=== PATIENT | male | born 1955 | race Caucasian/White ===

== ENCOUNTER → 2021-02-03 | Day surgery (SDC) | payer OTHER ==
[~2021-02-03] MED LIST: ACIPHEX20 MG PO; ALL DAY ALLERGY10 M2 PO; ASPIRIN EC81 MG PO; CELEXA20 M1 PO; COREG25 MG PO; COZAAR50 MG PO; JANUVIA50 MG PO; LIPITOR20 MG PO; LOVAZA1 GM PO; METFORMIN HCL500 MG PO; NORVASC5 MG PO; PROVIGIL200 MG PO; SYNTHROID75 MCG PO; TRADJENTA5 MG PO
[2021-02-03 08:17] LABS: HCT 43.9 % (42.0-52.0); MCH 30.6 pg (25.0-31.0); MCHC 34.2 g/dL (32.0-36.0); MCV 89.6 fL (78.0-100.0); MPV 9.8 fL (6.0-9.5); RBC 4.9 M/uL (4.70-6.00); RDW 13.8 % (11.5-14.0); WBC 8.5 K/uL (4.0-10.5)
[2021-02-03 08:37] LABS: ALBUMIN 3.9 g/dL (3.4-5.0); BILIRUBIN - TOTAL 0.8 mg/dL (0.2-1.0); BUN/CREAT RATIO (CALC) 13.8 RATIO; CREATININE 0.87 mg/dL (0.67-1.17); GLOBULIN (CALCULATION) 3.5 g/dL; POTASSIUM 4.1 mmol/L (3.5-5.1); TOTAL PROTEIN 7.4 g/dL (6.4-8.2)
== END | disposition home or self-care (01) ==
LOC: FAS 07:12
PROVIDERS: Surgery
DX: K29.50 Unspecified chronic gastritis without bleeding (principal); K21.9 Gastro-esophageal reflux disease without esophagitis; I25.10 Atherosclerotic heart disease of native coronary artery without angina pectoris; I10 Essential (primary) hypertension; E11.9 Type 2 diabetes mellitus without complications; E78.5 Hyperlipidemia, unspecified; Z88.5 Allergy status to narcotic agent; Z79.84 Long term (current) use of oral hypoglycemic drugs; Z82.49 Family history of ischemic heart disease and other diseases of the circulatory system; Z83.3 Family history of diabetes mellitus; Z86.010 Personal history of colon polyps
CPT/HCPCS: 36415; 80053; J2250; J2704; J7120